=== PATIENT | male | born 1925 | race Hispanic/Latino ===

== ENCOUNTER 2017-08-02 11:51 | Emergency (ER) | payer MEDICARE, OTHER ==
[~2017-08-02] VITALS: Ht 177.8 cm; Wt 96.6 kg
[~2017-08-02 11:51] MED LIST: ACTOS; ACTOS45 MG PO; ALPHAGAN; ALPHAGAN P5 M1 OU; AVAPRO; AVAPRO150 MG PO; AVODART; AVODART0.5 MG PO; BETAGAN5 ML OU; BYETTA; BYETTA10 MCG/0.0 SC; CLARINEX; CLARINEX5 MG PO; CYMBALTA; CYMBALTA30 MG PO; GLYBURIDE; LEVAQUIN500 MG PO; LEVOBUNOLOL; MEDROL4 MG/DOSE- PO; NEU300 PO; PLAVIX; PLAVIX75 MG PO; RANITIDINE; TESSALON PERLE100 MG PO; TRICOR145 MG PO; UROXATRAL; UROXATRAL10 MG PO; XALATAN; ZOCOR
== END 2017-08-02 14:56 | disposition left against medical advice (07) ==
LOC: ER 11:51
DX: R53.1 Weakness (principal); I10 Essential (primary) hypertension; E11.9 Type 2 diabetes mellitus without complications; I51.9 Heart disease, unspecified; N28.9 Disorder of kidney and ureter, unspecified
CPT/HCPCS: 99281

== ENCOUNTER 2017-08-16 10:08 | Emergency (ER) | payer MEDICARE ==
[~2017-08-16] VITALS: Ht 177.8 cm; Wt 96.6 kg
[2017-08-16] MEDS ORDERED: SODIUM CHLORIDE 0.9% 1000ML 1,000 ML IV STA (11:52)
[2017-08-16 12:14] LABS: BASOPHILS # (AUTO) 0.1 (0.0-0.1); BASOPHILS % 0.6 % (0.0-1.0); EOSINOPHILS # (AUTO) 0.5 (0.0-0.4); EOSINOPHILS % 3.6 % (0.0-6.0); HEMATOCRIT 42.1 % (38.2-49.6); HEMOGLOBIN 14.6 g/dL (14.0-18.0); LYMPHOCYTES # (AUTO) 2.3 (1.0-3.2); LYMPHOCYTES % 17.6 % (18.0-39.1); MEAN CORPUSCULAR HEMOGLOBIN 31.9 pg (28-32); MEAN CORPUSCULAR HGB CONC 34.7 g/dL (31-35); MEAN CORPUSCULAR VOLUME 91.9 fL (81-99); MONOCYTES # (AUTO) 1.2 (0.2-0.8); MONOCYTES % 8.8 % (4.4-11.3); NEUTROPHILS # (AUTO) 9.1 (2.1-6.9); NEUTROPHILS % 68.8 % (38.7-80.0); PLATELET COUNT 255 x10e3/uL (140-360); RED BLOOD COUNT 4.58 x10e6/uL (4.3-5.7); RED CELL DISTRIBUTION WIDTH 13.2 % (11.7-14.4)
[2017-08-16 12:15] LABS: BILIRUBIN,URINE NEGATIVE (NEGATIVE); KETONES,URINE NEGATIVE (NEGATIVE); LEUKOCYTE ESTERASE ,URINE NEGATIVE (NEGATIVE); NITRITE,URINE NEGATIVE (NEGATIVE); URINE UROBILINOGEN 0.2 mg/dL (0.2 - 1)
[2017-08-16 12:16] LABS: CLARITY,URINE CLEAR (CLEAR); COLOR,URINE AMBER (YELLOW); PROTEIN,URINE DIPSTICK 2+ (NEGATIVE)
[2017-08-16 12:28] LABS: ALBUMIN 3.3 g/dL (3.5-5.0); ALBUMIN/GLOBULIN RATIO 0.9 (0.8-2.0); ANION GAP 10.6 mmol/L (8-16); CALCIUM 9.7 mg/dL (8.4-10.2); CREATININE, SERUM 1.31 mg/dL (0.72-1.25); POTASSIUM 3.6 mmol/L (3.5-5.1)
[2017-08-16 12:31] LABS: BACTERIA,URINE RARE /HPF; EPITHELIAL CELLS,URINE RARE /LPF; RBC,URINE 0-5 /HPF (0-5)
[2017-08-16 12:35] LABS: CREATINE KINASE MB 1.9 ng/mL (0.00-5.00); TROPONIN I 0.049 ng/mL (0-0.300)
--- NOTE | 2017-08-16 13:37 | Diagnostic Imaging Report ---
Portable chest x-ray CPT code 03750 INDICATION: Shortness of breath COMPARISON: Chest x-ray 08/22/2014 FINDINGS: Frontal view of the chest obtained at 1243 hours. The cardiac silhouette is enlarged and stable in morphology with aortic ectasia and atherosclerotic calcifications. The pulmonary vascular marking are normal. The lungs demonstrate no infiltrates. Tiny calcified granulomata versus vessels on end are in the left upper lobe. The costophrenic angles are sharp. There is no pneumothorax. The osseous structures are stable with degenerative changes of the spine and acromioclavicular joints. IMPRESSION: 1. Stable cardiomegaly. No pulmonary vascular congestion. 2. No evidence of infiltrate. Other pulmonary findings as described above. Signed by: Dr. Una Jacobs MD on 08/16/2017 1:33 PM
[2017-08-16] MEDS ORDERED: LEVAQUIN500 MG PO (14:24)
[2017-08-16] MEDS ORDERED: TAMIFLU75 MG PO (14:24)
[2017-08-16 14:25] VITALS: BP 189/90
== END 2017-08-16 15:00 | disposition home or self-care (01) ==
LOC: ER 10:08
DX: R42 Dizziness and giddiness (principal); R11.0 Nausea; R53.1 Weakness; I10 Essential (primary) hypertension; E11.9 Type 2 diabetes mellitus without complications
CPT/HCPCS: 36415; 71010; 80053; 81001; 82550; 82553; 84484; 85025; 87086; 87400; 93005; 99284; J7030